=== PATIENT | male | born 1985 | race Caucasian/White ===

== ENCOUNTER 2019-01-07 08:14 | Emergency (ER) | payer BC ==
[2019-01-07 08:35] VITALS: BP 143/88
--- NOTE | 2019-01-07 08:59 | UC ---
Skin Complaint HPI - HPI Summary HPI Summary: 33 y/o male with skin concern. Woke up this morning with tick on the nipple. removed most of it but maybe head still in skin. Was not there last night. Been present for < 12 hours. Nothing worsens or improves symptoms - History of Current Complaint Chief Complaint: UCGeneralIllness Time Seen by Provider: 01/07/19 08:48 Stated Complaint: TICK CONCERN Hx Obtained From: Patient Pain Intensity: 0 - Allergy/Home Medications Allergies/Adverse Reactions: Allergies Allergy/AdvReac Type Severity Reaction Status Date / Time No Known Allergies Allergy Verified 01/07/19 08:30 Home Medications: Home Medications NK [No Home Medications Reported] 01/07/19 [History Confirmed 01/07/19] PMH/Surg Hx/FS Hx/Imm Hx Previously Healthy: Yes - Surgical History Surgical History: Yes Surgery Procedure, Year, and Place: REPAIR OF UNDECENDED TESTICLE AGE 6 - Family History Known Family History: Positive: Diabetes - Social History Occupation: Employed Full-time Alcohol Use: Occasionally Substance Use Type: None Smoking Status (MU): Never Smoked Tobacco Type: Smokeless Tobacco Amount Used/How Often: 1 can every 3 days Review of Systems All Other Systems Reviewed And Are Negative: Yes Skin: Positive: Other - tick bite Physical Exam Triage Information Reviewed: Yes Appearance: Well-Appearing, No Pain Distress Vital Signs: Initial Vital Signs Temp 97.9 F 01/07/19 08:30 Pulse 70 01/07/19 08:30 Resp 16 01/07/19 08:30 BP 143/88 01/07/19 08:30 Pulse Ox 98 01/07/19 08:30 Vital Signs Reviewed: Yes Eye Exam: Normal ENT Exam: Normal Dental Exam: Normal Neck exam: Normal Cardiovascular Exam: Normal Musculoskeletal Exam: Normal Neurological Exam: Normal Psychological Exam: Normal Skin: Positive: Other - small pinpoint black speck under the right breast. taken alcohol swab to disinfect, used splinter forceps to remove the rest of the tick and placed triple antibiotic and band aid on the the area Course/Dx - Course Course Of Treatment: tick bite. No EM. On for < 12 hours. no Abx required. watch for cellulitis and EM. pt agreeable - Diagnoses Provider Diagnosis: Tick bite of right side of chest wall Discharge - Sign-Out/Discharge Documenting (check all that apply): Patient Departure All imaging exams completed and their final reports reviewed: No Studies - Discharge Plan Condition: Good Disposition: HOME Patient Education Materials: Tick Bite (ED) Referrals: No Primary Care Phys,NOPCP [Primary Care Provider] - - Billing Disposition and Condition Condition: GOOD Disposition: Home
== END 2019-01-07 09:05 | disposition home or self-care (01) ==
LOC: UCCORT 08:14
DX: Y92.9 Unspecified place or not applicable (principal); T63.481A Toxic effect of venom of other arthropod, accidental (unintentional), initial encounter; F17.220 Nicotine dependence, chewing tobacco, uncomplicated
CPT/HCPCS: 99201; G0463